=== PATIENT | male | born 1995 | race Asian ===

== ENCOUNTER 2018-09-14 21:15 | Emergency (ER) | payer BC ==
[~2018-09-14] VITALS: Ht 170.2 cm; Wt 51.6 kg
[2018-09-14 21:20] VITALS: BP 127/70
[2018-09-14] MEDS ORDERED: AMOX-580 PO (21:40)
[2018-09-14] MEDS ORDERED: amox tr/potassium clavulanate 875/125mg TAB PO ONE (21:40)
[2018-09-14] MEDS ORDERED: acetaminophen 325mg tablet PO ONE (21:40)
== END 2018-09-14 21:52 | disposition home or self-care (01) ==
LOC: ER 21:16
DX: J02.9 Acute pharyngitis, unspecified (principal)
CPT/HCPCS: 99283